=== PATIENT | male | born 1960 | race Caucasian/White ===

== ENCOUNTER → 2018-08-19 | Outpatient (CLI) | payer OTHER ==
[~2018-08-19] MED LIST: ASPI325T PO; ASPI81TA85 PO; ATEN25TA PO; COUM1TAB17 PO; COUM1TAB19 PO; DIGO0.12 PO; DOCU10CA PO; FURO20TA2 PO; GASTROGRAFIN SOLUTION 30ML (Q9963) As Ordered ONE; HEPA10004 SQ; ISOVUE-370 76% 100ML VIAL (Q9967) As Ordered ONE; LISI-542 PO; LISI10TA4 PO; META1.7W PO; METO1TAB33 PO; METO50TA7 PO; MILK12002 PO; MIRA3350 PO; NORC1TAB4 PO; PERC5TAB12 PO; PRAV40TA PO; PRIL40CA PO; SENN1TAB2 PO; SENO8.6T5 PO; TENO1TAB3 PO; TYLE650T30 PO; XARE20TA PO
--- NOTE | 2018-08-20 09:26 | REP ---
Clinical: Abdominal pain with history of peristomal hernia. Technique: Axial contrast enhanced images from the lung bases to the pubic symphysis using oral (per protocol) and 100 ml Isovue 370 intravenous contrast material with precontrast images of the abdomen as well as coronal and sagittal re-formations. Comparison: 12/30/2015. Findings: A large peristomal hernia measuring greater than 14.7 x 10.0 x 20.3 cm involving the left anterior abdominopelvic wall contains a significant amount of nonobstructed small and large bowel and represents a relatively new finding as compared to CT dated 2015. Liver, spleen, atrophic pancreas, gallbladder, bilateral adrenal glands are normal. The kidneys demonstrate areas of cortical scarring as well as hypodensities suggesting cysts. There is no evidence for bowel obstruction. Small to moderate hiatal hernia at the gastroesophageal junction is identified. Ventral parastomal hernia as detailed above. Scattered sigmoid diverticula noted without acute diverticulitis. Normal terminal ileum and appendix identified in the right lower quadrant. Pelvis demonstrates normal bladder and age appropriate prostate/seminal vesicles. Small fat containing right inguinal hernia. No ascites. No free air. No adenopathy. Atherosclerotic changes to the aorta and vasculature without aneurysm or dissection. Musculoskeletal structures are intact and without focal osseous abnormality. Impression: 1. Large ventral peristomal hernia contains normal appearing unobstructed small and large bowel. 2. Renal hypodensities consistent with cysts and scattered renal cortical scarring appears chronic. 3. Sigmoid diverticula without acute diverticulitis. 4. Small fat containing right inguinal hernia. Electronically Signed by Krzysztof Bourgeois MD 08/20/2018 09:18 A
== END ==
LOC: M RAD 08:48
PROVIDERS: ATTEND Surgery
DX: K43.9 Ventral hernia without obstruction or gangrene (principal); R93.429 Abnormal radiologic findings on diagnostic imaging of unspecified kidney; K57.30 Diverticulosis of large intestine without perforation or abscess without bleeding; K40.90 Unilateral inguinal hernia, without obstruction or gangrene, not specified as recurrent; K43.5 Parastomal hernia without obstruction or gangrene
CPT/HCPCS: 74178; Q9963; Q9967

== ENCOUNTER → 2018-09-28 | Outpatient (CLI) | payer OTHER ==
[~2018-09-28] MED LIST changes: -GASTROGRAFIN SOLUTION 30ML (Q9963) As Ordered ONE; -ISOVUE-370 76% 100ML VIAL (Q9967) As Ordered ONE; +MILK120011 PO; -MILK12002 PO
[2018-09-28 18:43] LABS: HEMATOCRIT 47.5 % (42.0-52.0); HEMOGLOBIN 15.1 g/dl (13.5-17.5); MEAN CORPUSCULAR HEMOGLOBIN 28.2 pg (27.0-33.0); MEAN CORPUSCULAR HGB CONC 31.8 g/dl (32.0-36.5); MEAN CORPUSCULAR VOLUME 88.8 fl (80.0-96.0); PLATELET COUNT, AUTOMATED 297 10^3/uL (150-450); RED BLOOD COUNT 5.35 10^6/uL (4.30-6.10); WHITE BLOOD COUNT 9.5 10^3/uL (4.0-10.0)
[2018-09-28 18:57] LABS: BLOOD UREA NITROGEN 19 MG/DL (7-18); CALCIUM LEVEL 9.2 MG/DL (8.8-10.2); CARBON DIOXIDE LEVEL 27 MEQ/L (21-32); CHLORIDE LEVEL 107 MEQ/L (98-107); CREATININE FOR GFR 1.06 MG/DL (0.70-1.30); GLOMERULAR FILTRATION RATE > 60.0 (>49); GLUCOSE, FASTING 83 MG/DL (70-100); POTASSIUM SERUM 4.7 MEQ/L (3.5-5.1); SODIUM LEVEL 141 MEQ/L (136-145)
== END ==
LOC: M SMT 15:32
PROVIDERS: ATTEND Internal Medicine Cardiovascular Disease
DX: Z01.818 Encounter for other preprocedural examination (principal); I48.91 Unspecified atrial fibrillation

== ENCOUNTER 2018-10-05 06:07 | Inpatient (IN) | payer OTHER, MEDICARE ==
--- NOTE | 2018-10-04 20:06 | HPE ---
DATE OF SCHEDULED ADMISSION: 10/05/2018 ADMISSION DIAGNOSIS: Descending colostomy for colostomy closure. HISTORY OF PRESENT ILLNESS: The patient is a pleasant 58-year-old man who is being admitted on the morning of 10/05/2018 to undergo surgery for takedown of his colostomy. The patient had undergone emergency surgery on 12/24/2015 for a perforated sigmoid diverticulum. An exploratory laparotomy was performed with a sigmoid colectomy and end descending colostomy. Because of his peritonitis, he had a somewhat prolonged postoperative course. Ultimately he did well and was discharged home on 01/07/2016. He was seen in followup in the office and had a followup colonoscopy on 04/29/2016. This revealed some residual diverticulosis at the end of his sigmoid colon. The proximal bowel appeared normal. Following the colonoscopy, the patient elected not to pursue a colostomy takedown at that time. The patient subsequently returned to see me in November of 2017 with a parastomal hernia. He was not having any pain at that time, though he had some difficulty fitting his ostomy appliance. We discussed possible repair of the hernia as well as possible takedown of his colostomy. He subsequently returned in July of 2018 by which time his parastomal hernia was no longer reducible. He also was interested in pursuing closure of his colostomy if possible. The patient had a CT scan of the abdomen and pelvis obtained on 08/19/2018. This revealed a very large parastomal hernia containing a large amount of unobstructed small bowel. Sigmoid diverticulosis was noted at the end of his rectosigmoid stump. He was also noted to have one or two small ventral hernias along the midline. The patient was counseled for repair of his parastomal hernia with resection of his residual sigmoid and a coloproctostomy. The patient desires to proceed with this surgery and is now being admitted. He has performed a mechanical and antibiotic bowel preparation prior to admission. MEDICATIONS: The patient's only current medication is Xarelto 20 mg by mouth daily. ALLERGIES: Allergy is reported to LATEX, although his hospital record also reports CODEINE as a drug with which he has had an adverse reaction. SURGICAL HISTORY: The patient has undergone a previous knee surgery. He had a pacemaker implantation in December of 2015. He underwent an atrioventricular (AV) node ablation also in 2015. In November of 2015, he had an exploratory laparotomy with sigmoid colectomy and colostomy for perforation. He has had a recent cardiac catheterization in July of 2018. MEDICAL HISTORY: Significant for a cerebrovascular accident affecting his right side. He has some persistent right hemiparesis. He has had atrial fibrillation for which he ultimately underwent an AV node ablation with a pacemaker. He has a history of hypertension as well as some gastroesophageal reflux disease. SOCIAL HISTORY: The patient is a former smoker. He denies any alcohol use. He is . Family history is noncontributory. REVIEW OF SYSTEMS: Reveals no chest pain or palpitations. He has had no cough, wheezing or shortness of breath. He denies any bleeding from his stoma or melena. He does have some occasional abdominal discomfort apparently associated with his hernia. He has no history of deep vein thrombosis (DVT) or pulmonary embolus. He denies any bone or joint pains currently. He has no recent new neurologic changes. PHYSICAL EXAM: Reveals a pleasant man appearing older than his stated age of 58 years. He is obese. Skin: Warm and dry. Sclerae are anicteric. The neck is supple without mass or bruit. Heart: Exam reveals a regular rhythm. The lungs are clear to auscultation bilaterally. The abdomen reveals a stoma in his left mid to lower abdomen. He has a very large parastomal hernia surrounding this which is not reducible. He has an old midline scar. The abdomen is soft and nontender without appreciable mass. Extremities are without edema, and he has palpable radial and pedal pulses. Chemistries: The patient underwent a CBC on 09/28/2018 that showed a white count of 10, hemoglobin 15, hematocrit of 48 and a platelet count of 297,000. Chemistry profile revealed normal electrolytes with a BUN of 19, creatinine 1.0 and a glucose of 83. The patient had undergone an EKG at the english teacher's office on 09/28/2018, which revealed atrial fibrillation with a rate of 69 beats per minute with a ventricular paced rhythm. He had a cardiac catheterization back in July of 2018 that showed no angiographic coronary artery disease with a left ventricular ejection fraction estimated at 70% with some mild aortic stenosis. He has been evaluated preoperatively by Dr. Waggoner of cardiology who recommends holding his Xarelto after his dose on Thursday evening. IMPRESSION: 1. Large incarcerated parastomal hernia. 2. Colostomy status post sigmoid colectomy for perforation. 3. Residual sigmoid diverticulosis in his rectosigmoid stump. 4. Atrial fibrillation, on anticoagulation. 5. Permanent pacemaker. 6. Status post cerebrovascular accident with persistent right hemiparesis. PLAN: The patient is being admitted to undergo a takedown of his colostomy with repair of his parastomal hernia and coloproctostomy, resecting his residual sigmoid colon that still contains some significant diverticulosis. The patient was counseled for the procedure to include indications, risks, and possible benefits. Risks include but are not limited to bleeding, infection, scarring, adverse drug reaction, need for further surgery, injury of internal organ, anastomotic leak, and hernia recurrence. He had an opportunity to ask questions and desires to proceed with the surgery as I have outlined it. PATTY
[~2018-10-05] VITALS: Ht 165.1 cm; Wt 96.2 kg
[~2018-10-05 06:07] MED LIST changes: +ALVIMOPAN 12 MG CAPSULE (ENTEREG) PO ONE; +cefoTEtan DISODIUM 2 GM in D5W MINI-BAG PLUS 50 ML IV ONE
[2018-10-05] MEDS ORDERED: fentaNYL 250 MCG/5 ML INJECTION (J3010) As Ordered ONE (06:55)
[2018-10-05] MEDS ORDERED: MIDAZOLAM INJ 2 MG/2 ML VIAL (J2250) As Ordered ONE (06:56)
[2018-10-05] MEDS ORDERED: LIDOCAINE 1% SDV INJ 30 ML VIAL As Ordered ONE (06:56)
[2018-10-05] MEDS ORDERED: BUPIVACAINE HCL 0.25% 30 ML VIAL As Ordered ONE ×2 (06:56→11:44)
[2018-10-05] MEDS ORDERED: HYDROmorphone HCL 2 MG/ML 1ML VIAL (J1170) As Ordered ONE (06:56)
[2018-10-05] MEDS ORDERED: NEOM500T PO (07:02)
[2018-10-05] MEDS ORDERED: METR-201 PO (07:02)
[2018-10-05] MEDS ORDERED: ROCURONIUM BROMIDE 50 MG/5 ML VIAL As Ordered ONE ×2 (07:03→13:49)
[2018-10-05] MEDS ORDERED: PROPOFOL 200 MG/20 ML VIAL As Ordered ONE ×4 (07:03→14:22)
[2018-10-05] MEDS ORDERED: LIDOCAINE 2% INJ 100 MG/5 ML SDV (FOR ANES.) As Ordered ONE (07:03)
[2018-10-05] MEDS ORDERED: ONDANSETRON 4MG/2ML VIAL (J2405) As Ordered ONE ×2 (07:03→09:29)
[2018-10-05] MEDS ORDERED: dexameTHASONE 4 MG/ML 1ML VIAL (J1100) As Ordered ONE (07:03)
[2018-10-05] MEDS ORDERED: SUGAMMADEX SODIUM 500 MG/5 ML VIAL (BRIDION) As Ordered ONE (07:03)
[2018-10-05] MEDS ORDERED: LABETALOL HCL 100 MG/20 ML VIAL As Ordered ONE (08:21)
[2018-10-05] MEDS ORDERED: BUPIVACAINE LIPOSOME/PF 1.3% 20ML VIAL (13.3MG/ML)(EXPAREL)(C9290 PER1MG) As Ordered ONE (11:44)
[2018-10-05] MEDS ORDERED: LEVALBUTEROL 1.25 MG/0.5 ML CONCENTRATE NEB As Ordered ONE (15:24)
[2018-10-05] MEDS ORDERED: fentaNYL 100 MCG/2 ML INJECTION (J3010) IV PRN (15:30)
[2018-10-05] MEDS ORDERED: HYDROMORPHONE HCL 0.5 MG/ 0.5 ML SYRINGE (J1170 PER 1) IV PRN (15:30)
[2018-10-05] MEDS ORDERED: LR 1,000 ML IV SCH (15:30)
[2018-10-05] MEDS ORDERED: LEVALBUTEROL 1.25 MG/0.5 ML CONCENTRATE NEB INH ONE (15:30)
[2018-10-05] MEDS ORDERED: ACETAMINOPHEN TAB 650MG DOSE (2X325MG) PO PRN (15:45)
[2018-10-05] MEDS ORDERED: MORPHINE 4 MG/ML 1ML VIAL/SYRINGE (J2270) IV PRN ×2 (15:45)
[2018-10-05] MEDS ORDERED: KETOROLAC 30 MG/ML VIAL (J1885) IV PRN (15:45)
[2018-10-05 17:45] VITALS: BP 161/85
[2018-10-05] MEDS: LR 1,000 ML IV SCH (17:59)
[2018-10-05 18:30] VITALS: BP 156/80
[2018-10-05 19:30] VITALS: BP 172/88
[2018-10-05] MEDS: cefoTEtan DISODIUM 2 GM in D5W MINI-BAG PLUS 50 ML IV SCH (20:14)
[2018-10-05] MEDS: ALVIMOPAN 12 MG CAPSULE (ENTEREG) PO SCH (20:15)
[2018-10-05 20:30] VITALS: BP 140/60
[2018-10-05 21:30] VITALS: BP 137/70
[2018-10-05 22:30] VITALS: BP 130/62
[2018-10-06 02:00] VITALS: BP 105/57
[2018-10-06] MEDS: LR 1,000 ML IV SCH (03:59)
[2018-10-06 06:00] VITALS: BP 118/68
[2018-10-06 07:20] LABS: EOS % 0.1 % (0.0-3.0); HEMATOCRIT 45.6 % (42.0-52.0); HEMOGLOBIN 14.8 g/dl (13.5-17.5); LYMPH # 1.4 10^3/uL (1.5-4.5); LYMPH % 8.7 % (24.0-44.0); MEAN CORPUSCULAR HEMOGLOBIN 27.7 pg (27.0-33.0); MEAN CORPUSCULAR HGB CONC 32.5 g/dl (32.0-36.5); MEAN CORPUSCULAR VOLUME 85.4 fl (80.0-96.0); MONO # 1.4 10^3/uL (0.0-0.8); MONO % 8.2 % (0.0-5.0); NEUTROPHILS # 13.6 10^3/uL (1.8-7.7); NEUTROPHILS % 82.6 % (36.0-66.0); PLATELET COUNT, AUTOMATED 264 10^3/uL (150-450); RED BLOOD COUNT 5.34 10^6/uL (4.30-6.10); WHITE BLOOD COUNT 16.4 10^3/uL (4.0-10.0)
[2018-10-06 07:43] LABS: ALBUMIN 3.1 GM/DL (3.2-5.2); ALT/SGPT 23 U/L (12-78); BILIRUBIN,TOTAL 0.4 MG/DL (0.2-1.0); BLOOD UREA NITROGEN 11 MG/DL (7-18); CALCIUM LEVEL 9.1 MG/DL (8.8-10.2); CARBON DIOXIDE LEVEL 27 MEQ/L (21-32); CHLORIDE LEVEL 108 MEQ/L (98-107); CREATININE FOR GFR 1.05 MG/DL (0.70-1.30); GLOMERULAR FILTRATION RATE > 60.0 (>49); GLUCOSE, FASTING 122 MG/DL (70-100); POTASSIUM SERUM 4.4 MEQ/L (3.5-5.1); SODIUM LEVEL 140 MEQ/L (136-145); TOTAL PROTEIN 6.7 GM/DL (6.4-8.2)
[2018-10-06] MEDS: ALVIMOPAN 12 MG CAPSULE (ENTEREG) PO SCH ×2 (08:12→20:14)
[2018-10-06] MEDS: cefoTEtan DISODIUM 2 GM in D5W MINI-BAG PLUS 50 ML IV SCH (08:12)
[2018-10-06] MEDS: ENOXAPARIN 40 MG/0.4 ML SYRINGE (J1650) SC SCH (08:13)
[2018-10-06 10:00] VITALS: BP 138/70
[2018-10-06 14:00] VITALS: BP 120/63
--- NOTE | 2018-10-06 15:01 | IPN ---
DATE: 10/06/2018 HISTORY: The patient is now one day postoperative from surgery to take down his descending colostomy, resect his residual sigmoid colon, and repair a large parastomal hernia. His surgery was quite long at six hours and difficult because of an inability to pass the stapler retrograde up the rectum. It was therefore necessary to make a small low midline incision to do a stapled anastomosis of the colon to the rectal stump. He does have several unrepaired midline hernias at the umbilicus and smaller ones above this. The patient has done well over his first night postoperative. He is reporting a little pain, just some soreness or discomfort. He has been tolerating some clear liquids and reports passage of some flatus today but no bowel movement. VITAL SIGNS: Show that he has been afebrile since surgery. His pulse is 70 and his respirations are in the mid to upper teens. Blood pressure is good and his oxygen saturation on two liters of nasal cannula is in the low to mid 90s. Intake and output show that yesterday he had 3400 in with 960 out. His drain which is in the large hernia sac put out 5 mL yesterday and 50 mL is recorded today. His urine output has been excellent. PHYSICAL EXAMINATION: The patient is lying quietly in the hospital bed. He is alert and oriented. Heart examination shows a regular rhythm. The lungs are clear. The abdomen has multiple bandages in place which are clean and dry. He does seem to have a few bowel sounds present on auscultation and there is no undue tenderness identified. LABORATORY STUDIES: Show a white count of 16,000, hemoglobin 15, hematocrit of 46, and a platelet count of 264,000. Differential count shows 83% neutrophils, 9% lymphocytes, and 8% monocytes. Chemistry profile shows normal electrolytes with the exception of a chloride of 108 and his BUN is 11 with a creatinine of 1. Glucose is 122. Liver function tests are normal. IMPRESSION: The patient is doing very well one day postoperative from his difficult colostomy takedown with repair of a parastomal hernia. PLAN: The patient will be advanced from clear liquids to full liquids. He will have his Cruz catheter removed but I did ask him to continue to record the urine output. His IV fluids will also be discontinued. He was encouraged to be up out of bed. We will await return of bowel function.
[2018-10-06 18:00] VITALS: BP 133/81
[2018-10-06 22:00] VITALS: BP 124/63
[2018-10-07 02:00] VITALS: BP 148/79
[2018-10-07 06:00] VITALS: BP 138/72
[2018-10-07] MEDS: ALVIMOPAN 12 MG CAPSULE (ENTEREG) PO SCH ×2 (08:38→20:04)
[2018-10-07] MEDS: ENOXAPARIN 40 MG/0.4 ML SYRINGE (J1650) SC SCH (08:38)
[2018-10-07 10:00] VITALS: BP 141/77
--- NOTE | 2018-10-07 13:02 | RO ---
DATE OF PROCEDURE: 10/05/2018 PREOPERATIVE DIAGNOSES: 1. Is colostomy for closure. 2. Is sigmoid diverticulosis. 3. Is incarcerated parastomal hernia. POSTOPERATIVE DIAGNOSES: 1. Are colostomy for elective closure. 2. Is residual sigmoid diverticulosis. 3. Is incarcerated parastomal hernia. 4. Is several midline ventral hernias. 5. Is abdominal adhesions. PROCEDURES PERFORMED: Is a list as follows: 1. Laparoscopic resection of sigmoid colon 2. Is reduction and repair of large parastomal hernia. 3. Is takedown of descending colostomy with coloproctostomy. 4. Is lysis of adhesions. 5. Is repair of perineal laceration. SURGEON: Dexter Tolbert MD RESEARCH PROFESSOR: Veto Day MD, whose assistance was required for management of the laparoscopic camera and business development assistant port, as well as retraction for the limited open portions of the procedure and assistance in performing the anastomosis. ANESTHESIA: General. INDICATIONS FOR THE PROCEDURE: The patient is a pleasant 58-year-old man, who had undergone an exploratory laparotomy and sigmoid colectomy for a perforated diverticulum slightly over 2-1/2 years ago. Descending colostomy was performed at that time. He deferred closure out of concerns about having further major surgery. He subsequently developed a large parastomal hernia, which would no longer reduce. He, therefore, elected to undergo surgery for repair of his hernia and closure of his colostomy. He is also known to have some residual diverticulosis in his short residual sigmoid colon, and this is also for resection. OPERATIVE PROCEDURE: The patient was brought to the operating room and placed on the table in a supine position. He was placed under general endotracheal anesthesia. Thromboembolic deterrents (TEDs) and sequentials were utilized. A Cruz catheter was inserted. His legs were positioned into padded leg holders, and he was moved into a lithotomy position. A digital rectal examination was performed, which revealed a large mass that was very hard inspissated stool within the rectum. This required disimpaction and was removed in two large fragments. His ostomy appliance was then removed, and the stoma was closed with two concentric pursestring sutures of 2-0 silk. The patient's abdomen was then prepped and draped in a sterile fashion. Perineum was also prepped. Initial examination showed his large parastomal hernia on the left extending to the midline. He was known to have a hernia at the umbilicus from a preoperative CT scan. The initial entry into the abdomen was in the right side of the abdomen, slightly below the level of the umbilicus and about at the midclavicular line. 0.25% Marcaine was infiltrated, and a short transverse incision was made. A Veress needle was inserted; and after positive hanging drop test, the abdomen was insufflated with carbon dioxide gas. As the abdomen was inflated, it was clear that his parastomal hernia also was inflated with gas. A 5-mm port was placed over a 5-mm scope, and this was advanced through the abdominal wall without difficulty. Initial inspection showed that there were adhesions of the omentum in several areas to the anterior abdominal wall. The liver was partially seen and appeared normal. The patient's large parastomal hernia opening was seen with the colon entering into the hernia. It was clear that the small bowel had reduced after insufflation of the abdomen. A second 5-mm trocar was placed lower and more lateral in the right lower quadrant, and a third 5-mm trocar was placed in the right midabdomen slightly above into the right of the umbilicus, where it had been noted that there was some omentum adherent up into a hernia at this area. Using the harmonic scalpel, some adhesions of the omentum to the anterior abdominal wall were lysed. The omentum that was adherent into the umbilical hernia was also freed and reduced into the abdomen. This appeared to be a fascial defect approximately 4 cm in diameter. There were several smaller defects noted along the midline superiorly. There were several less prominent but definite weaknesses in the midline fascia extending inferiorly, as well. The patient was placed into a steep Trendelenburg position to elevate the small bowel up out of the pelvis, which was accomplished nicely. The residual sigmoid colon was identified with multiple large diverticula. There were some filmy adhesions of this to the surrounding tissues, and these were largely broken apart by blunt dissection, and some firmer bands were cut with the harmonic scalpel. The sigmoid colon was then mobilized by dividing the mesentery close to the bowel wall extending down lower into the pelvis to identify the splaying of the tenia. At this level at the rectosigmoid, the mesorectum was partially divided, and the rectum was stapled with an Julian stapler. To accomplish this, the lowest right lower quadrant trocar was converted from a 5-mm to a 12-mm port. A single load of the Julian stapler was used to divide this and resect the sigmoid colon. This was left in the pelvis for later removal. At this point, I turned my attention to the parastomal hernia and freeing of the colon leading to the ostomy. There were some fragments of omentum adherent around the edges of the hernia, and these were freed by dissection with the harmonic. Likewise, attachments of the colon to the abdominal wall and the edge of the hernia defect were divided. Inspection revealed that there should be adequate length for a coloproctostomy once the colon had been freed from the stoma site. Inspection revealed excellent hemostasis. I then proceeded to deflate the abdomen and make an incision to mobilize the ostomy. The ostomy had been previously covered with a sponge with an Opsite, and this was removed. A transverse elliptical incision was made to remove the stoma with a portion of the thinned surrounding skin. This was approximately 7-8 cm in length x 2-3 cm in width centrally. This was incised with a scalpel, and the incision was deepened using the cautery. The large hernia sac was entered, and the end of the bowel was freed circumferentially. The end of the bowel was resected to remove the attached skin and somewhat-scarred stoma. The remaining bowel was quite pliable, and the diameter was excellent for use of a 29-mm EEA stapler. The anvil of the stapler was placed into the end of the colon through a pursestring suture of 2-0 Prolene. Pericolonic fat was excised at the end of the colon to prevent its interference with the anastomosis. This portion of the colon was then irrigated with saline and then reduced into the abdomen. At this time, the surgical team changed gown and gloves, and attention was turned to the parastomal hernia. This was perhaps 6-7 cm in length and approximately 4-5 cm in width. The posterior rectus sheath was freed by a combination of sharp and cautery dissection from the overlying rectus muscle on both sides of the defect. Likewise, the anterior fascia was from the underlying muscle on both sides and freed from some overlying subcutaneous tissues to prevent tension on this tissue. The posterior rectus sheath was closed with a running 1-0 Vicryl. The rectus muscle was approximated with several interrupted simple sutures of 1-0 chromic. The anterior rectus fascia was closed with interrupted simple sutures of #1 Vicryl. This appeared to give an excellent closure of the ostomy site. I elected not to excise the hernia sac. An additional portion of the thinned skin along the edges of the wound was excised, and hemostasis was ensured with cautery. The wound was packed with a moistened lap pad. We then turned our attention to performing the anastomosis. I moved down to the perineum. Dr. Day maintained the camera within the abdomen as we attempted to proceed with a transrectal anastomosis. I attempted several times to pass a 25-mm EEA sizer up the rectum without success. Attempts to pass the 29 or 33 sizer were also unsuccessful. The colonoscope was then inserted, and it was possible to advance the scope all the way to the end of the rectal stump without significant difficulty. The rectal stump was irrigated with water, and a small amount of nonobstructing congealed mucus was removed. On removing the scope, it was noted that the patient had a linear tear at the anal verge of the perineum extending approximately 4 cm posterior and to the right. There did not appear to be any damage to the underlying sphincter complex, but this tear had clearly occurred as a result of his disimpaction and possibly attempts to dilate the rectum during attempts to pass the EEA sizers. This was noted for later repair. A further attempt to pass the 25 mm EEA sizer with additional Surg-I-Loop inserted into the rectum was unsuccessful. It was clear that his rectal diameter was not adequate to allow a transrectal passage of the stapler. At this point, I elected to make a short low midline incision. Therefore, an approximately 10-cm low midline incision was made beginning just above the pubis. This was deepened through the subcutaneous tissues, and the fascia was opened along the midline, as well as the peritoneum. Initially, handheld retractors were inserted to expose the rectal stump. The end of the descending colon with the inserted stapler anvil was delivered into the wound. The end of the rectal stump was inspected and was clearly too small to admit a 29-mm stapler anvil. A Renetta retractor was placed. The end of the rectal stump was excised. The diameter slightly farther distal appeared to be adequate for a 29-mm anvil, but on attempting to place this in the rectal stump, tore longitudinally. Therefore, this was removed, and a further excision of a portion of the rectal stump was performed. Some surrounding fibrofatty tissue was excised. A 25-mm EEA stapler was then obtained. It was possible to place the anvil into the rectal stump through a pursestring suture of 2-0 Prolene. The 29-mm EEA anvil was removed from the end of the descending colon. The 25-mm stapler was inserted into the end of the colon and brought to the side of the colon approximately 5-7 cm proximal to the end of the bowel. This was then brought down into the pelvis, and the pin of the stapler was brought through the wall of the colon, and a stapled anastomosis was performed to the anvil in the rectal stump. The residual end of the descending colon was excised and closed with a firing of the Julian stapler. Inspection of the donuts within the EEA stapler revealed that there was not an intact donut in the rectal end of the anastomosis, though the proximal end was intact. Inspection revealed what appeared to be a defect at the anterior edge of the anastomosis. This area was closed and then reinforced additionally with a second layer of sutures using sutures of 2-0 Vicryl. Final inspection revealed what appeared to be an excellent anastomosis. The bowel was then clamped, and I again went down to the perineum and inserted the colonoscope. With the pelvis filled with saline, air was insufflated through the scope, and there was no evidence of leakage. The anastomosis was inspected from within the large bowel, and no defects were identified. There was no bleeding seen. The scope was then removed. I then changed gown and gloves and returned to the abdomen. The pelvis was irrigated, and inspection revealed no bleeding. All lap pads and retractors were then removed. The trocars were removed. The 12-mm trocar site was closed from within the abdomen with a single suture of 0 Vicryl. After the sponge count was reported as correct, the peritoneum in the lower midline incision was closed with a running suture of 1-0 Vicryl. The fascia was then closed with interrupted simple sutures of #1 Vicryl. A 19-Occitan Naif drain was placed into the left-sided abdominal wound at the site of the parastomal hernia. This was brought through a separate stab wound slightly higher up the left side of the abdomen. This was sutured to the skin with a 2-0 silk. The subcutaneous tissues in this wound were closed with buried Vicryl. The skin incisions then all closed with skin sandi. The patient's perineal wound was then inspected. This was facilitated by freeing the legs up into a more lithotomy position from low lithotomy. Inspection revealed a somewhat irregular tear extending from the 6:30 position at the anal verge posteriorly approximately 4-5 cm. Again by palpation, there did not seem to be any defect of the anal sphincter mechanism. There was a more superficial tear of the perineal skin extending posteriorly on the left, which was much shorter. The perineum was prepped with Betadine and draped. The right-sided tear was approximated with several deeper sutures of 3-0 Vicryl. The skin edges were then brought into apposition with several buried 3-0 Vicryl sutures, as well. This appeared to approximate the wound adequately for closure by secondary intention of more superficial tissues. This area was dressed with Adaptic and a sterile gauze. His abdominal incisions were dressed with sterile gauze. The drain in the left upper quadrant was dressed with a CHG OpSite. A suction bulb was attached to the drain. The patient tolerated the procedure well without evident problem. He was awakened in the operating room, extubated, and moved to the recovery room in stable condition.
[2018-10-07 14:00] VITALS: BP 155/79
[2018-10-07] MEDS: RIVAROXABAN 20 MG TAB (XARELTO) PO SCH (17:31)
[2018-10-07 18:00] VITALS: BP 164/78
[2018-10-07 22:00] VITALS: BP 138/74
[2018-10-08 02:00] VITALS: BP 154/85
[2018-10-08 06:00] VITALS: BP 147/88
[2018-10-08 07:58] LABS: BASO % 0.2 % (0.0-1.0); EOS % 0.2 % (0.0-3.0); HEMATOCRIT 47.5 % (42.0-52.0); HEMOGLOBIN 15.7 g/dl (13.5-17.5); LYMPH # 2.2 10^3/uL (1.5-4.5); LYMPH % 17.5 % (24.0-44.0); MEAN CORPUSCULAR HEMOGLOBIN 28.1 pg (27.0-33.0); MEAN CORPUSCULAR HGB CONC 33.1 g/dl (32.0-36.5); MONO # 0.9 10^3/uL (0.0-0.8); MONO % 7.4 % (0.0-5.0); NEUTROPHILS # 9.1 10^3/uL (1.8-7.7); NEUTROPHILS % 74.4 % (36.0-66.0); PLATELET COUNT, AUTOMATED 252 10^3/uL (150-450); RED BLOOD COUNT 5.59 10^6/uL (4.30-6.10); WHITE BLOOD COUNT 12.3 10^3/uL (4.0-10.0)
[2018-10-08] MEDS: ALVIMOPAN 12 MG CAPSULE (ENTEREG) PO SCH (08:29)
[2018-10-08 08:40] LABS: ALBUMIN 3.3 GM/DL (3.2-5.2); ALT/SGPT 40 U/L (12-78); BILIRUBIN,TOTAL 0.7 MG/DL (0.2-1.0); BLOOD UREA NITROGEN 12 MG/DL (7-18); CALCIUM LEVEL 9.1 MG/DL (8.8-10.2); CARBON DIOXIDE LEVEL 23 MEQ/L (21-32); CHLORIDE LEVEL 107 MEQ/L (98-107); CREATININE FOR GFR 0.79 MG/DL (0.70-1.30); GLOMERULAR FILTRATION RATE > 60.0 (>49); GLUCOSE, FASTING 105 MG/DL (70-100); POTASSIUM SERUM 3.5 MEQ/L (3.5-5.1); SODIUM LEVEL 138 MEQ/L (136-145); TOTAL PROTEIN 7.5 GM/DL (6.4-8.2)
[2018-10-08 10:00] VITALS: BP 149/81
[2018-10-08 14:00] VITALS: BP 153/74
--- NOTE | 2018-10-08 16:14 | IPN ---
DATE: 10/08/2018 HISTORY: The patient is now postoperative day #2 from a takedown of his colostomy with coloproctostomy and repair of a large parastomal hernia. The patient reports little to no discomfort. He has not used any pain medications at all. He reports that he has been ambulating okay. He is taking full liquids well. He reports flatus but no bowel movement yet. He indicates that he voided without difficulty after his Cruz catheter was removed yesterday. Vital signs show that he has been afebrile over the past 24 hours. His pulse is ranging from 69-72, and he is fully paced. His blood pressure is good with room air oxygen saturations in the low 90s. Intake and output shows that yesterday he had 1940 in with 1464 out. His drain had 75 mL yesterday. He has had an excellent urine output recorded so far today. PHYSICAL EXAMINATION: Shows that the heart exam is a regular rate and rhythm. The lungs are clear. The abdomen shows multiple bandages in place, which are clean and dry. He does have bowel sounds present. His left sided drain in the hernia sac has some minimal serosanguineous fluid. IMPRESSION: The patient is doing very well 2 days postoperative from his surgery for takedown of his colostomy and closure of his parastomal hernia. His colorectal anastomosis was difficult, as the rectal stump was too narrow to allow retrograde passage of the stapler. PLAN: The patient will be advanced to a regular diet. He has been tolerating liquids since surgery and is having flatus. He was counseled that initial bowel movements are likely to be loose, and he may have some difficulty with control. I will start him by back on his rivaroxaban today and stop his Lovenox.
[2018-10-08 18:00] VITALS: BP 154/80
[2018-10-08] MEDS: RIVAROXABAN 20 MG TAB (XARELTO) PO SCH (18:16)
[2018-10-08 22:00] VITALS: BP 150/84
[2018-10-09 02:00] VITALS: BP 140/76
[2018-10-09 06:00] VITALS: BP 153/81
[2018-10-09 08:57] VITALS: BP 138/92
== END 2018-10-09 10:34 | disposition home or self-care (01) | DRG 221 ==
LOC: M OR 06:07 → M MSPAV 17:38
PROVIDERS: ADMIT Surgery; ATTEND Surgery
PROC: 0WQF4ZZ Repair Abdominal Wall, Percutaneous Endoscopic Approach (ICD-10-PCS; 2018-10-05)
PROC: 0DBN4ZZ Excision of Sigmoid Colon, Percutaneous Endoscopic Approach (ICD-10-PCS; principal; 2018-10-05 07:30)
DX: Z43.3 Encounter for attention to colostomy (principal); I69.351 Hemiplegia and hemiparesis following cerebral infarction affecting right dominant side; I10 Essential (primary) hypertension; I48.91 Unspecified atrial fibrillation; Z91.040 Latex allergy status; Z88.5 Allergy status to narcotic agent; Z87.891 Personal history of nicotine dependence; K21.9 Gastro-esophageal reflux disease without esophagitis; Z95.0 Presence of cardiac pacemaker; Z79.01 Long term (current) use of anticoagulants; K57.30 Diverticulosis of large intestine without perforation or abscess without bleeding; K43.3 Parastomal hernia with obstruction, without gangrene

== ENCOUNTER → 2021-10-28 | Outpatient (CLI) | payer MEDICARE, OTHER ==
[~2021-10-28] MED LIST changes: -ALVIMOPAN 12 MG CAPSULE (ENTEREG) PO ONE; +ASPI-1 PO; -ASPI325T PO; +ASPI81TA26 PO; -ASPI81TA85 PO; +ASPI81TA86 PO; -LISI-542 PO; +LISI10TA22 PO; -LISI10TA4 PO; +LISI5TAB11 PO; -META1.7W PO; +METAMUCIL1 WAF PO; +METR-265 PO; +NEOM500T PO; -NORC1TAB4 PO; +NORC1TAB7 PO; +SENN-53 PO; -SENN1TAB2 PO; -cefoTEtan DISODIUM 2 GM in D5W MINI-BAG PLUS 50 ML IV ONE
== END ==
LOC: M RAD 09:45
PROVIDERS: ATTEND Physician Assistant Medical
DX: N28.1 Cyst of kidney, acquired (principal)

== ENCOUNTER → 2021-12-25 | Outpatient (REF) | payer OTHER, MEDICARE ==
[2021-12-25 13:29] LABS: BASO # 0.1 10^3/uL (0.0-0.2); BASO % 0.5 % (0.0-1.0); EOS # 0.2 10^3/uL (0.0-0.5); EOS % 1.7 % (0.0-3.0); HEMATOCRIT 48.9 % (42.0-52.0); HEMOGLOBIN 15.3 g/dl (13.5-17.5); LYMPH # 2.1 10^3/uL (1.5-5.0); LYMPH % 22.3 % (24.0-44.0); MEAN CORPUSCULAR HEMOGLOBIN 27.8 pg (27.0-33.0); MEAN CORPUSCULAR HGB CONC 31.3 g/dl (32.0-36.5); MEAN CORPUSCULAR VOLUME 88.9 fl (80.0-96.0); MONO # 0.7 10^3/uL (0.0-0.8); MONO % 7.7 % (2.0-8.0); NEUTROPHILS # 6.2 10^3/uL (1.5-8.5); NEUTROPHILS % 67.4 % (36.0-66.0); PLATELET COUNT, AUTOMATED 242 10^3/uL (150-450); WHITE BLOOD COUNT 9.2 10^3/uL (4.0-10.0)
[2021-12-25 14:02] LABS: ALBUMIN 4.1 GM/DL (3.2-5.2); ALT/SGPT 33 U/L (12-78); BILIRUBIN,TOTAL 0.4 MG/DL (0.2-1.0); BLOOD UREA NITROGEN 19 MG/DL (7-18); CALCIUM LEVEL 10.2 MG/DL (8.8-10.2); CARBON DIOXIDE LEVEL 27 MEQ/L (21-32); CHLORIDE LEVEL 110 MEQ/L (98-107); CHOLESTEROL LEVEL 165 MG/DL (<200); CREATININE FOR GFR 0.86 MG/DL (0.70-1.30); GLOMERULAR FILTRATION RATE > 60.0 (>49); GLUCOSE, FASTING 83 MG/DL (70-100); HDL CHOLESTEROL 66 MG/DL (>40); LDL CHOLESTEROL 83 MG/DL (<100); NON-HDL-C 99 MG/DL; POTASSIUM SERUM 4.6 MEQ/L (3.5-5.1); SODIUM LEVEL 143 MEQ/L (136-145); THYROID STIMULATING HORMONE 0.909 uIU/ML (0.358-3.740); TOTAL 25(OH) VITAMIN D 31.5 NG/ML (30.0-100.0); TRIGLYCERIDES LEVEL 82 MG/DL (<150)
== END ==
LOC: M SFHCADAM 08:41
PROVIDERS: ATTEND Physician Assistant Medical
DX: I48.91 Unspecified atrial fibrillation (principal); E66.01 Morbid (severe) obesity due to excess calories; R73.01 Impaired fasting glucose

== ENCOUNTER → 2022-02-06 | Outpatient (REF) | payer OTHER, MEDICARE ==
[2022-02-06 13:05] LABS: APPEARANCE, URINE HAZY (CLEAR); BACTERIA, URINE AUTO NEGATIVE (NEGATIVE); BILIRUBIN, URINE AUTO NEGATIVE (NEGATIVE); BLOOD, URINE BLOOD 3+ (NEGATIVE); COLOR, URINE YELLOW (YELLOW); GLUCOSE, URINE (UA) AUTO NEGATIVE (NEGATIVE); KETONE, URINE AUTO TRACE mg/dL (NEGATIVE); LEUKOCYTE ESTERASE, URINE AUTO 2+ (NEGATIVE); MUCUS, URINE SMALL (NEGATIVE); NITRITE, URINE AUTO NEGATIVE (NEGATIVE); PROTEIN, URINE AUTO 2+ mg/dL (NEGATIVE); RBC, URINE AUTO 171 /HPF (0-3); SPECIFIC GRAVITY URINE AUTO 1.033 (1.002-1.035); SQUAMOUS EPITHELIAL CELL UR AU 0 /HPF (0-6); WBC, URINE AUTO 145 /HPF (0-3)
== END ==
LOC: M SFHCADAM 09:20
PROVIDERS: ATTEND Physician Assistant Medical
DX: N39.41 Urge incontinence (principal)
CPT/HCPCS: 81001; 87088; 87186; G0103

== ENCOUNTER → 2022-04-29 | Outpatient (REF) | payer OTHER, MEDICARE ==
[2022-04-29 14:09] LABS: ALBUMIN 3.4 GM/DL (3.2-5.2); ALT/SGPT 23 U/L (12-78); BILIRUBIN,TOTAL 0.4 MG/DL (0.2-1.0); BLOOD UREA NITROGEN 20 MG/DL (7-18); CALCIUM LEVEL 9.3 MG/DL (8.8-10.2); CARBON DIOXIDE LEVEL 25 MEQ/L (21-32); CHLORIDE LEVEL 108 MEQ/L (98-107); CHOLESTEROL LEVEL 187 MG/DL (<200); CHOLESTEROL RISK RATIO 3.016 (<5); CREATININE FOR GFR 0.97 MG/DL (0.70-1.30); GLOMERULAR FILTRATION RATE > 60.0 (>49); GLUCOSE, FASTING 98 MG/DL (70-100); HDL CHOLESTEROL 62 MG/DL (>40); LDL CHOLESTEROL 109 MG/DL (<100); NON-HDL-C 125 MG/DL; POTASSIUM SERUM 4.5 MEQ/L (3.5-5.1); SODIUM LEVEL 138 MEQ/L (136-145); TOTAL PROTEIN 6.9 GM/DL (6.4-8.2); TRIGLYCERIDES LEVEL 79 MG/DL (<150)
== END ==
LOC: M SFHCADAM 08:08
PROVIDERS: ATTEND Physician Assistant Medical
DX: I48.91 Unspecified atrial fibrillation (principal); I65.02 Occlusion and stenosis of left vertebral artery

== ENCOUNTER → 2022-06-09 | Outpatient (REF) | payer OTHER, MEDICARE | LOC: M SFHCADAM 09:27 | PROVIDERS: ATTEND Physician Assistant Medical | DX: N41.0 Acute prostatitis (principal); R97.20 Elevated prostate specific antigen [PSA] ==

== ENCOUNTER → 2022-12-17 | Outpatient (REF) | payer OTHER, MEDICARE ==
[2022-12-17 13:25] LABS: ALBUMIN 3.7 G/DL (3.2-5.2); ALKALINE PHOSPHATASE 76 U/L (46-116); ALT/SGPT 20 U/L (7.0-40); AST/SGOT 16 U/L (<34); BILIRUBIN,TOTAL 0.4 MG/DL (0.3-1.2); BLOOD UREA NITROGEN 19 MG/DL (9-23); CALCIUM LEVEL 9.9 MG/DL (8.3-10.6); CARBON DIOXIDE LEVEL 28 MMOL/L (20-31); CHLORIDE LEVEL 108 MMOL/L (98-107); CREATININE FOR GFR 0.89 MG/DL (0.70-1.30); GLOMERULAR FILTRATION RATE > 60.0 (>49); GLUCOSE, FASTING 89 MG/DL (74-106); POTASSIUM SERUM 4.7 MMOL/L (3.5-5.1); SODIUM LEVEL 140 MMOL/L (136-145); TOTAL PROTEIN 7.3 G/DL (5.7-8.2)
[2022-12-17 13:27] LABS: THYROID STIMULATING HORMONE 1.762 uIU/ML (0.55-4.78)
[2022-12-18 11:29] LABS: DRVV SCREEN 60.1 SEC
[2022-12-18 11:52] LABS: PTT LUPUS TYPE ANTICOAG SCREEN 1.6 (0-1.2)
[2022-12-18 12:01] LABS: DRVV CONFIRM 46.1 SEC; LUPUS CONFIRM RATIO 1.3
[2022-12-18 12:46] LABS: NORMALIZED RATIO 1.23 (0.00-1.20)
[2022-12-19 12:08] LABS: ANA (HEP2) Negative (.); ANTI DS-DNA AB Negative (Negative); CARDIOLIPIN IGA ANTIBODY <9 APL U/mL (0-11); CARDIOLIPIN IGG ANTIBODY <9 GPL U/mL (0-14); CARDIOLIPIN IGM ANTIBODY 11 MPL U/mL (0-12); CYCLIC CITRULLINATED PEPTIDE 5 units (0-19)
[2022-12-20 00:09] LABS: HEXAGONAL PHASE PHOSPHOLIPID 6 sec (0-11)
== END ==
LOC: M SFHCADAM 10:51
PROVIDERS: ATTEND Physician Assistant Medical
DX: M79.642 Pain in left hand (principal); M79.89 Other specified soft tissue disorders; M25.642 Stiffness of left hand, not elsewhere classified

== ENCOUNTER → 2022-12-17 | Outpatient (CLI) | payer OTHER, MEDICARE | LOC: M ADAMS 10:54 | PROVIDERS: ATTEND Physician Assistant Medical | DX: M79.5 Residual foreign body in soft tissue (principal); M18.12 Unilateral primary osteoarthritis of first carpometacarpal joint, left hand ==

== ENCOUNTER → 2023-09-02 | Outpatient (REF) | payer OTHER, MEDICARE ==
[2023-09-02 12:46] LABS: BASO # 0.1 10^3/uL (0.0-0.2); BASO % 0.4 % (0.0-1.0); EOS # 0.1 10^3/uL (0.0-0.5); EOS % 0.6 % (0.0-3.0); HEMATOCRIT 48.5 % (42.0-52.0); HEMOGLOBIN 14.8 g/dl (13.5-17.5); LYMPH # 1.4 10^3/uL (1.5-5.0); LYMPH % 11.9 % (24.0-44.0); MEAN CORPUSCULAR HEMOGLOBIN 26.9 pg (27.0-33.0); MEAN CORPUSCULAR HGB CONC 30.5 g/dl (32.0-36.5); MONO # 0.5 10^3/uL (0.0-0.8); MONO % 4.4 % (2.0-8.0); NEUTROPHILS # 9.7 10^3/uL (1.5-8.5); NEUTROPHILS % 82.4 % (36.0-66.0); PLATELET COUNT, AUTOMATED 273 10^3/uL (150-450); RED BLOOD COUNT 5.51 10^6/uL (4.30-6.10); WHITE BLOOD COUNT 11.8 10^3/uL (4.0-10.0)
[2023-09-02 13:08] LABS: HEMOGLOBIN A1c 5.8 % (4.0-6.0)
[2023-09-02 13:13] LABS: ALBUMIN 3.9 G/DL (3.2-5.2); ALKALINE PHOSPHATASE 64 U/L (46-116); ALT/SGPT 19 U/L (7.0-40); AST/SGOT 10 U/L (<34); BILIRUBIN,TOTAL 0.4 MG/DL (0.3-1.2); BLOOD UREA NITROGEN 28 MG/DL (9-23); CALCIUM LEVEL 10.1 MG/DL (8.3-10.6); CARBON DIOXIDE LEVEL 27 MMOL/L (20-31); CHLORIDE LEVEL 110 MMOL/L (98-107); CHOLESTEROL LEVEL 171 MG/DL (<200); CHOLESTEROL RISK RATIO 2.36 (<5); CREATININE FOR GFR 1.07 MG/DL (0.70-1.30); GLOMERULAR FILTRATION RATE > 60.0 (>49); GLUCOSE, FASTING 88 MG/DL (74-106); HDL CHOLESTEROL 72.4 MG/DL (>40); LDL CHOLESTEROL 84.8 MG/DL (<100); NON-HDL-C 98.6 MG/DL; POTASSIUM SERUM 4.9 MMOL/L (3.5-5.1); SODIUM LEVEL 141 MMOL/L (136-145); TOTAL PROTEIN 6.6 G/DL (5.7-8.2); TRIGLYCERIDES LEVEL 69 MG/DL (<150)
[2023-09-02 13:15] LABS: THYROID STIMULATING HORMONE 0.568 uIU/ML (0.55-4.78); TOTAL 25(OH) VITAMIN D 25.1 NG/ML (20.0-100.0)
== END ==
LOC: M SFHCADAM 10:47
PROVIDERS: ATTEND Physician Assistant Medical
DX: I48.91 Unspecified atrial fibrillation (principal); E66.01 Morbid (severe) obesity due to excess calories; N40.1 Benign prostatic hyperplasia with lower urinary tract symptoms

== ENCOUNTER → 2024-07-12 | Outpatient (REF) | payer MEDICARE, OTHER ==
[2024-07-12 18:51] LABS: BLOOD UREA NITROGEN 21 MG/DL (9-23); CALCIUM LEVEL 10.2 MG/DL (8.3-10.6); CARBON DIOXIDE LEVEL 28 MMOL/L (20-31); CHLORIDE LEVEL 103 MMOL/L (98-107); GLOMERULAR FILTRATION RATE > 60.0 (>49); GLUCOSE, FASTING 102 MG/DL (74-106); POTASSIUM SERUM 4.5 MMOL/L (3.5-5.1); SODIUM LEVEL 137 MMOL/L (136-145)
== END ==
LOC: M SFHCADAM 11:46
PROVIDERS: ATTEND Physician Assistant Medical
DX: I63.542 Cerebral infarction due to unspecified occlusion or stenosis of left cerebellar artery (principal); H53.2 Diplopia

== ENCOUNTER → 2024-09-14 | Outpatient (CLI) | payer MEDICARE, OTHER ==
[2024-09-14 14:38] LABS: LDH LACTATE DEHYDROGENASE 180 U/L (120-246)
== END ==
LOC: M RAD 13:14
PROVIDERS: ATTEND Internal Medicine Critical Care Medicine
DX: Q53.111 Unilateral intraabdominal testis (principal); F17.218 Nicotine dependence, cigarettes, with other nicotine-induced disorders; R91.8 Other nonspecific abnormal finding of lung field; R39.83 Unilateral non-palpable testicle

== ENCOUNTER → 2024-09-30 | Outpatient (RCR) | payer MEDICARE, OTHER | LOC: M ST 09-08 09:26 | PROVIDERS: ATTEND Physician Assistant Medical | DX: I69.320 Aphasia following cerebral infarction (principal) ==

== ENCOUNTER 2024-10-05 09:56 | Outpatient (RCR) | payer MEDICARE, OTHER | END 2024-10-28 | LOC: M ST 09:56 | PROVIDERS: ATTEND Physician Assistant Medical | DX: I69.320 Aphasia following cerebral infarction (principal) ==

== ENCOUNTER → 2024-10-18 | Outpatient (REF) | payer MEDICARE, OTHER ==
[2024-10-18 14:01] LABS: BASO # 0.1 10^3/uL (0.0-0.2); BASO % 0.9 % (0.0-1.0); EOS # 0.3 10^3/uL (0.0-0.5); EOS % 2.9 % (0.0-3.0); HEMATOCRIT 42.4 % (42.0-52.0); LYMPH # 1.7 10^3/uL (1.5-5.0); LYMPH % 20.1 % (24.0-44.0); MEAN CORPUSCULAR HEMOGLOBIN 24.8 pg (27.0-33.0); MEAN CORPUSCULAR HGB CONC 30.7 g/dl (32.0-36.5); MEAN CORPUSCULAR VOLUME 80.9 fl (80.0-96.0); MONO # 0.8 10^3/uL (0.0-0.8); MONO % 8.8 % (2.0-8.0); NEUTROPHILS # 5.8 10^3/uL (1.5-8.5); PLATELET COUNT, AUTOMATED 322 10^3/uL (150-450); RED BLOOD COUNT 5.24 10^6/uL (4.30-6.10); WHITE BLOOD COUNT 8.6 10^3/uL (4.0-10.0)
[2024-10-18 14:31] LABS: PSA SCREENING 0.89 NG/ML (< 4.00)
[2024-10-18 14:34] LABS: THYROID STIMULATING HORMONE 1.944 uIU/ML (0.55-4.78)
[2024-10-18 14:35] LABS: FREE T4 1.05 NG/DL (0.89-1.76)
[2024-10-18 14:37] LABS: TOTAL 25(OH) VITAMIN D 22.4 NG/ML (20.0-100.0)
[2024-10-18 14:38] LABS: FOLATE 7.8 NG/ML (>5.4); VITAMIN B12 LEVEL 500 PG/ML (211-911)
[2024-10-18 14:39] LABS: ALBUMIN 3.5 G/DL (3.2-5.2); ALKALINE PHOSPHATASE 96 U/L (40-129); ALT/SGPT 13 U/L (7.0-40); AST/SGOT 11 U/L (<34); BILIRUBIN,TOTAL 0.3 MG/DL (0.3-1.2); BLOOD UREA NITROGEN 22 MG/DL (9-23); CARBON DIOXIDE LEVEL 28 MMOL/L (20-31); CHLORIDE LEVEL 110 MMOL/L (98-107); CHOLESTEROL LEVEL 159 MG/DL (<200); CHOLESTEROL RISK RATIO 2.83 (<5); CREATININE FOR GFR 0.97 MG/DL (0.70-1.30); GLOMERULAR FILTRATION RATE > 60.0 (>49); GLUCOSE, FASTING 78 MG/DL (74-106); LDL CHOLESTEROL 73.6 MG/DL (<100); POTASSIUM SERUM 4.7 MMOL/L (3.5-5.1); SODIUM LEVEL 144 MMOL/L (136-145); TRIGLYCERIDES LEVEL 147 MG/DL (<150)
== END ==
LOC: M SFHCADAM 10:27
PROVIDERS: ATTEND Physician Assistant Medical
DX: I48.91 Unspecified atrial fibrillation (principal); E66.01 Morbid (severe) obesity due to excess calories; N40.1 Benign prostatic hyperplasia with lower urinary tract symptoms; M06.9 Rheumatoid arthritis, unspecified; Z12.5 Encounter for screening for malignant neoplasm of prostate
CPT/HCPCS: 80053; 80061; 82306; 82607; 82746; 84439; 84443; 85025; G0103

== ENCOUNTER → 2024-10-20 | Outpatient (REF) | payer MEDICARE, OTHER ==
[2024-10-20 15:17] LABS: PERCENT SATURATION 15.7 % (19.7-50.0)
[2024-10-20 15:19] LABS: FERRITIN 18.3 NG/ML (10.5-307.3)
== END ==
LOC: M SFHCADAM 09:00
PROVIDERS: ATTEND Physician Assistant
DX: D64.9 Anemia, unspecified (principal)

== ENCOUNTER 2024-11-24 10:10 | Outpatient (RCR) | payer MEDICARE, OTHER | END 2024-11-28 | LOC: M ST 10:10 | PROVIDERS: ATTEND Physician Assistant Medical | DX: I69.320 Aphasia following cerebral infarction (principal); I69.351 Hemiplegia and hemiparesis following cerebral infarction affecting right dominant side ==

== ENCOUNTER 2024-12-22 10:07 | Outpatient (RCR) | payer MEDICARE, OTHER | END 2024-12-28 | LOC: M ST 10:07 | PROVIDERS: ATTEND Physician Assistant Medical | DX: I69.320 Aphasia following cerebral infarction (principal); I69.351 Hemiplegia and hemiparesis following cerebral infarction affecting right dominant side ==

== ENCOUNTER → 2025-06-22 | Outpatient (CLI) | payer MEDICARE, OTHER ==
[~2025-06-22] MED LIST changes: +SENN-225 PO; -SENO8.6T5 PO
== END ==
LOC: M PLAIMG 09:32
PROVIDERS: ATTEND Physician Assistant Medical
DX: R91.1 Solitary pulmonary nodule (principal); I51.7 Cardiomegaly; I70.0 Atherosclerosis of aorta; K86.89 Other specified diseases of pancreas; R93.421 Abnormal radiologic findings on diagnostic imaging of right kidney

== ENCOUNTER → 2025-08-22 | Outpatient (REF) | payer MEDICARE, OTHER ==
[~2025-08-22] MED LIST changes: +DOXY-441 PO; +PRED20TA PO
[2025-08-22 13:48] LABS: IRON (FE) 52.0 UG/DL (65-175); PERCENT SATURATION 27.5 % (19.7-50.0)
[2025-08-22 13:49] LABS: ALT/SGPT 13.0 U/L (7.0-40); AST/SGOT 16.0 U/L (<34); CALCIUM LEVEL 9.7 MG/DL (8.3-10.6); CARBON DIOXIDE LEVEL 30.0 MMOL/L (20-31); CHLORIDE LEVEL 108.0 MMOL/L (98-107); CHOLESTEROL LEVEL 142.0 MG/DL (<200); CHOLESTEROL RISK RATIO 2.68 (<5); CREATININE FOR GFR 1.06 MG/DL (0.70-1.30); GLOMERULAR FILTRATION RATE 77.4 (>49); LDL CHOLESTEROL 73.8 MG/DL (<100); NON-HDL-C 89.2 MG/DL; POTASSIUM SERUM 4.5 MMOL/L (3.5-5.1); SODIUM LEVEL 144.0 MMOL/L (136-145); TRIGLYCERIDES LEVEL 77.0 MG/DL (<150)
[2025-08-22 13:54] LABS: TOTAL 25(OH) VITAMIN D 54.9 NG/ML (20.0-100.0)
[2025-08-22 13:55] LABS: FREE T4 1.05 NG/DL (0.89-1.76); VITAMIN B12 LEVEL 529.0 PG/ML (211-911)
[2025-08-22 13:58] LABS: BASO # 0.1 10^3/uL (0.0-0.2); BASO % 0.9 % (0.0-1.0); EOS # 0.2 10^3/uL (0.0-0.5); EOS % 1.9 % (0.0-3.0); LYMPH # 1.8 10^3/uL (1.5-5.0); LYMPH % 20.0 % (24.0-44.0); MONO # 0.7 10^3/uL (0.0-0.8); MONO % 8.2 % (2.0-8.0); NEUTROPHILS # 6.0 10^3/uL (1.5-8.5); NEUTROPHILS % 68.7 % (36.0-66.0); PLATELET COUNT, AUTOMATED 297 10^3/uL (150-450)
[2025-08-22 14:08] LABS: ESTIMATED AVERAGE GLUCOSE 114.0 MG/DL (60-110)
== END ==
LOC: M SFHCADAM 08:27
PROVIDERS: ATTEND Physician Assistant Medical
DX: E61.1 Iron deficiency (principal); I48.91 Unspecified atrial fibrillation; N40.1 Benign prostatic hyperplasia with lower urinary tract symptoms; Z79.899 Other long term (current) drug therapy

== ENCOUNTER 2025-08-26 23:51 | Emergency (ER) | payer MEDICARE, OTHER ==
[~2025-08-26] VITALS: Ht 162.6 cm; Wt 88.6 kg
[~2025-08-26 23:51] MED LIST changes: -DOXY-441 PO; -PRED20TA PO
[2025-08-27 01:07] LABS: BASO # 0.1 10^3/uL (0.0-0.2); BASO % 0.4 % (0.0-1.0); EOS # 0.0 10^3/uL (0.0-0.5); EOS % 0.1 % (0.0-3.0); LYMPH # 0.7 10^3/uL (1.5-5.0); LYMPH % 5.2 % (24.0-44.0); MONO # 1.1 10^3/uL (0.0-0.8); MONO % 8.5 % (2.0-8.0); NEUTROPHILS # 11.5 10^3/uL (1.5-8.5); NEUTROPHILS % 85.5 % (36.0-66.0); PLATELET COUNT, AUTOMATED 249 10^3/uL (150-450)
[2025-08-27 01:26] LABS: CALCIUM LEVEL 9.5 MG/DL (8.3-10.6); CARBON DIOXIDE LEVEL 25.0 MMOL/L (20-31); CHLORIDE LEVEL 109.0 MMOL/L (98-107); CREATININE FOR GFR 1.1 MG/DL (0.70-1.30); GLOMERULAR FILTRATION RATE 74.0 (>49); POTASSIUM SERUM 3.5 MMOL/L (3.5-5.1); SODIUM LEVEL 143.0 MMOL/L (136-145)
[2025-08-27] MEDS ORDERED: DOXY-441 PO (04:26)
[2025-08-27] MEDS ORDERED: PRED20TA PO (04:26)
[2025-08-27] MEDS: DOXYCYCLINE HYCLATE 100 MG TABLET PO ONE (04:36)
[2025-08-27] MEDS: predniSONE 20 MG TAB PO ONE (04:36)
[2025-08-27 04:50] VITALS: BP 130/72; TEMP 98.9; O2SAT 97
== END 2025-08-27 05:12 | disposition home or self-care (01) ==
LOC: M ED 23:51
DX: J20.9 Acute bronchitis, unspecified (principal); I10 Essential (primary) hypertension; Z88.5 Allergy status to narcotic agent; Z91.040 Latex allergy status; Z79.1 Long term (current) use of non-steroidal anti-inflammatories (NSAID); Z79.2 Long term (current) use of antibiotics; Z79.01 Long term (current) use of anticoagulants; Z79.52 Long term (current) use of systemic steroids
CPT/HCPCS: 36415; 71045; 80048; 83880; 85025; 87486; 87581; 87633; 87798; 99283; J7512